=== PATIENT | male | born 1955 ===

== ENCOUNTER 2020-04-14 12:44 | Inpatient (IN) | payer MEDICAID ==
[~2020-04-14] VITALS: Ht 170.1 cm; Wt 120.2 kg
[2020-04-14] MEDS ORDERED: AMARYL1 M1 PO (12:59)
[2020-04-14] MEDS ORDERED: COZAAR25 M1 PO (13:00)
[2020-04-14] MEDS ORDERED: PLAVIX75 M1 PO (13:00)
[2020-04-14] MEDS ORDERED: PERCOCET 5-3251 EACH PO (13:01)
[2020-04-14] MEDS ORDERED: CALCIUM CITRAT250 M1 PO (13:02)
[2020-04-14] MEDS ORDERED: TYLENOL325 M1 PO (13:06)
[2020-04-14] MEDS ORDERED: VITAMIN D31250 MCG PO (13:06)
[2020-04-14] MEDS ORDERED: LASIX40 MG PO (13:07)
[2020-04-14] MEDS ORDERED: IRON325 M1 PO (13:08)
[2020-04-14] MEDS ORDERED: ZANAFLEX4 M1 PO (13:08)
[2020-04-14] MEDS ORDERED: NEURONTIN300 MG PO (13:09)
[2020-04-14] MEDS ORDERED: TRAZODONE100 MG PO (13:09)
[2020-04-14] MEDS ORDERED: MULTIPLE VITAM1 EAC1 PO (13:10)
[2020-04-14] MEDS ORDERED: ZYLOPRIM300 MG PO (13:10)
[2020-04-14 21:39] VITALS: BP 115/86
--- NOTE | 2020-04-14 22:37 | NUR ---
NOTIFIED RESIDENT OF ADMISSION
--- NOTE | 2020-04-14 22:40 | NUR ---
RESIDENTS ON FLOOR TO SEE CLIENT
--- NOTE | 2020-04-14 23:13 | NUR ---
BARBI GARZA III a 64 year old M admitted via stretcher from the ADMITTING as a emergency 72 hr. hold admission. Arrived on unit at 2115PM. ALLERGIES: SEEDED TOMATOES. Vital signs are: [id number] 115/86. CLIENT IS PINK SLIPPED AND DIDN'T SIGN ADMISSION PAPER. The client signed the following forms with stated understanding: Authorization For The Release of Medical Information, Clothing List, , Consent and Release Forms/Receipt of Rights, Acknowledgement of Advance Directive Information, Behavioral Health Consent Form, and Informed Consent of Medications. Admitted under the services of BARBI Cool MD. A search was conducted and hazardous articles were removed. Client was oriented to the unit. CLIENT PLEASENT AND INTERACTIVE. ADMITS TO DRINKING 7-8 BEERS DAILY BUT ONLY DOES COCAINE A COUPLE TIMES A MONTH IF DEPRESSED. STATES LAST YEAR HAS BEEN BAD, LOST SISTER TO CANCER AND LOST A COUSIN. IS CURRENTLY HOMELESS. WAS STAYING AT THE [facility] BUT THEY CAUGHT HIM DRINKING AND KICKED HIM OUT FOR 60 DAYS. STATES HE WAS TOLD HE WAS BEING SENT TO REHAB. HE FEELS HE NEEDS AT LEAST 30 DAYS IN REHAB TO STRAIGHTEN HIM OUT. RAIEL GARAY
--- NOTE | 2020-04-15 00:41 | NUR ---
DISCUSSED STRAIGHT ATIVAN ORDER GIVEN. DR BILL AGREES TO HOLD OFF ON ATIVAN AT THIS TIME AND MONITOR FOR DT'S. ORDER TO DC STRAIGHT ATIVAN RECIVED. HEARD MY ANNABELLE BETTS.
--- NOTE | 2020-04-15 06:40 | NUR ---
SLEPT PAST 2345PM.
[2020-04-15 07:29] LABS: BASO % 0.4 % (0.0-1.0); EOS # 0.1 10*3/uL (0.0-0.4); EOS % 2.2 % (1.0-4.0); HEMATOCRIT 39.9 % (42.0-52.0); LYMPH # 1.7 10*3/uL (1.3-4.4); LYMPH % 37.7 % (27.0-41.0); MEAN CELL VOLUME 84.7 fl (80.0-94.0); MEAN CORPUSCULAR HGB 26.8 pg (27.0-31.0); MEAN CORPUSCULAR HGB CONC 31.6 g/dl (33.0-37.0); MONO # 0.4 10*3/uL (0.1-1.0); MONO % 9.8 % (3.0-9.0); NEUT # 2.2 10*3/uL (2.3-7.9); NEUT % 49.7 % (47.0-73.0); PLATELET COUNT AUTOMATED 153 10*3/uL (130-400); RED BLOOD COUNT 4.71 10*6/uL (4.50-5.90); RED CELL DISTRI WIDTH 14.4 % (0-14.5); WHITE BLOOD COUNT 4.5 10*3/uL (4.8-10.8)
[2020-04-15 07:46] LABS: ALKALINE PHOSPHATASE 149 U/L (45-117); BUN 11 mg/dl (7-24); CHLORIDE 107 mmol/L (98-107); CHOLESTEROL 200 mg/dL (<200); CREATININE 1.21 mg/dL (0.70-1.30); HDL CHOLESTEROL 52 mg/dl (40-60); LDL CHOLESTEROL 110 mg/dL (9-159); SGOT/AST 7 IU/L (3-35); SGPT/ALT 20 U/L (12-78); SODIUM 139 mmol/L (136-145); TOTAL PROTEIN 6.8 gm/dL (6.4-8.2); TRIGLYCERIDES 189 mg/dl (<150); VLDL CHOLESTEROL 38 mg/dL (6-40)
[2020-04-15 07:59] VITALS: BP 152/82
--- NOTE | 2020-04-15 08:30 | NUR ---
Treatment Plan meeting was held this a.m. with Dr. Paz via telephone, DAMIAN Cedeno, RN, AT, CLERICAL WAREHOUSEMAN-S and Lapper in attendance. Plan for discharge is undeclded at this time. Suture Winder Hand to Assess Patient to determine Discharge Needs.
[2020-04-15 08:35] LABS: VITAMIN D, 25-HYDROXY 13.2 ng/mL (30-100)
--- NOTE | 2020-04-15 09:32 | NUR ---
PATIENT SIGNED VOLUNTARY CONSENT TO TREAT.
--- NOTE | 2020-04-15 10:55 | NUR ---
DR MARTINEZ ON UNIT TO ASSESS PATIENT, UPDATE PROVIDED.
--- NOTE | 2020-04-15 12:04 | NUR ---
DR. ORTEGA NOTIFIED OF PODIATRY CONSULT AND ON UNIT TO ASSESS PATIENT.
--- NOTE | 2020-04-15 12:40 | NUR ---
NASAL SWAB COLLECTED , PATIENT TOLERATED WELL ANDN SPECIMEN SENT TO LAB.
--- NOTE | 2020-04-15 13:10 | NUR ---
Met with pt individually this AM. Pt reports to depression and suicidal thoughts since becoming homeless in 02/27. Pt also reports to feeling very scared about his current life situation. Discussed this further and discussed discharge options. Will explore options further for pt.
[2020-04-15 13:45] LABS: BILIRUBIN Negative (Negative); BLOOD Negative (Negative); CLARITY Clear (Clear); COLOR Yellow (Yellow); GLUCOSE Negative (Negative); KETONE Negative (Negative); LEUKO ESTERASE Negative (Negative); NITRITE Negative (Negative); UROBILINOGEN 0.2 E.U./dl (0.0-1.0)
[2020-04-15 14:10] LABS: WBC 0-2 wbc/hpf (0-5)
--- NOTE | 2020-04-15 14:19 | NUR ---
P: SLIGHTLY DEPRESSED; WITHDRAWN TO SELF DURING GROUP SESSIONS. I: ONE ON ONE, ENCOURGE GROUP SESSION AND SOCIAL INTERACTIONS WITH STAFF AND OTHER PATIENTS. R: EFFECTIVE. PATIENT INTERACTIVE WITH STAFF. PATIENT ATTENDS GROUPS BUT DOES NOT PARTICIPATE. PATIENT IS ALERT TO PERSON, PLACE, TIME AND SITUATION; ABLE TO VOICE NEED. MOOD IS SLIGHT DEPRESSED AND WITHDRAWN. DENIES HALLUCINATIONS, DELUSIONS, HI/SI OR PAIN. MEDICATION COMPLIANT WITH EDUCATION PROVIDED. Q 15 MINUTE SAFETY CHECKS MAINTAINED. INDEPENDENT WITH ACTIVITIES OF DAILY LIVING, CONTINENT OF BOWEL AND BLADDER. SET UP FOR MEALS, INTAKES ARE GOOD WITH ADEQUATE FLUIDS. ATTENDS GROUP SESSIONS. P: MONITOR MOOD, THOUGHTS OF SI. PROVIDE ONE ON ONE, ENCOURAGE SOCIAL INERACTIONS, CONTRACT FOR SAFETY NEEDED.
--- NOTE | 2020-04-15 15:44 | NUR ---
PM GROUP PT WAS PRESENT FOR AFTERNOON GROUP THERAPY SEATED AT A TABLE CLOSE TO THE TV. I ATTEMPTED TO INTRODUCE MYSELF BUT THE PT WAS TERSE AND DISMISSIVE. PT WAS ASKED IF HE WAS WATCHING THE MOVIE IT WAS VERY LOUD. PT STATED THAT HE WAS WATCHING IT. THE TV VOLUME WAS TURNED DOWN AND PT WAS OBSERVED TO BE SLEEPING AND NOT WATCHING THE TV. PT REMAINED SLEEPING FOR THE REST OF THE GROUP AND DID NOT NOTICE THAT THE TV HAD BEEN TURNED OFF.
--- NOTE | 2020-04-15 16:10 | NUR ---
Shift chart check completed.
[2020-04-15 19:40] VITALS: BP 124/70
--- NOTE | 2020-04-16 01:50 | NUR ---
P-ISOLATIVE I-REDIRECTION WITH 1:1 THERAPEUTIC INTERVENTIONS AND PRESENT REALITY. EDUCATE AND ENCOURAGE MEDICATION COMPLIANCE R-PATIENT MEDICATON COMPLAINT AT HS. PATIENT PROVIDED NOURISHMENT AND FLUIDS AT HS. PATIENT ISOLATIVE IN DINING AREA WITH PEERS AND NURSING STAFF. PATIENT REFUSED SKIN ASSESSMENT AT HS. PATIENT WITH NO HALLUCINATIONS OR DELUSIONS. PATIENT WITH NO HOMICIDAL OR SUICIDAL IDEATIONS. P-CONTINUE TO ENCOURAGE MEDICATION COMPLIANCE, CONTINUE TO PRESENT REALITY, ENCOURAGE GROUP THERAPY WHILE AWAKE
--- NOTE | 2020-04-16 06:48 | NUR ---
PATIENT SLEPT 8 HOURS OF UNINTERRUPTED SLEEP THROUGHOUT SHIFT. Q 15 MINUTE CHECKS MAINTAINED. 24 HR chart check completed.
[2020-04-16 07:33] VITALS: BP 130/67
--- NOTE | 2020-04-16 07:50 | NUR ---
PHYSICAL THERAPY Patient seen this am for therapy visit and was sitting up at table in activity room upon therapist arrival. Patient identified by name / and was joined by OT assistant health educator for observation only this session. Patient was very pleasant this morning, transfering sit to stand SBA and ambulating initialing with use of wh walker, Supervision, demonstrating steady denis, no LOB. Patient also ambulated additional 100' x 2, with WBQC, SBA, demonstrating initial increased gait velocity, however able to correct following v/c. Patient also dmeonstrated mild fatigue with several bouts of mild SOB, which improved by slowing down his denis. Patient returned to activity room chair awaiting breakfast reporting no new c/o's and remained under [facility] staff Supervision. Will continue per POC as tolerated, total treatment time 15 minutes. Rick Mcdonnell, OUTREACH LIAISON
--- NOTE | 2020-04-16 08:30 | NUR ---
Treatment Plan meeting was held this a.m. with DAMIAN Cedeno RN, AT and Conference Services Manager in attendance. Plan for discharge next Week. Pt. is currently Homeless. He is unable to return to the [facility] and is requesting a Sober House or Inpatient Residential Treatment for Alcohol. Will reach out to [facility] Director to discuss options.
--- NOTE | 2020-04-16 09:22 | NUR ---
DR JONES ON UNIT TO ASSESS PATIENT, UPDATE PROVIDED.
--- NOTE | 2020-04-16 10:51 | NUR ---
P: PATIENT ANXIOUS, WITHDRAWN, DEPRESSED, SAD. I: 1:1 FOR EMOTIONAL SUPPORT, PROVIDE SPACE NEEDED. ALLOW PATIENT TO VERBALIZE FEELINGS. R: PATIENT IS ALERT AND ORIENTED TO PERSON, PLACE, TIME AND SITUATION. PATIENT IS ANXIOUS AND WORRIED. PATIENT STATES HIS FIRST COUSIN CONTRACTED THE [employer] AND HAD A MAJOR HEART ATTACK AND IS ON LIFE SUPPORT. PATIENT STATES HE'S NOT ABLE TO SLEEP WELL D/T WORRYING ABOUT HIS COUSIN. PATIENT DOES FEEL SOME SADNESS AND DEPRESSION. PATIENT DENIES SI/HI. PATIENT DENIES ANY HALLUCINATIONS OR DELUSIONS. PATIENT IS AMBULATORY WITH WALKER. SET UP FOR MEALS. INTAKES ARE GOOD WITH ADEQUATE FLUIDS. PATIENT IS CONTINENT. MEDICATION COMPLIANT WITH EDUCATION. PATIENT PARTICIPATES IN GROUP ACITIVITES. P: WILL CONTINUE TO MONITOR MOODS/BEHAVIORS. WILL CONTINUE TO ENCOURAGE MEDICATION COMPLIANCE, ENCOURAGE INTERACTION WITH PEERS AND STAFF.
--- NOTE | 2020-04-16 11:42 | NUR ---
AM GROUP PT WAS PRESENT FOR MORNING GROUP THERAPY AND PARTICIPATED BY WATCHING TV AND SOCIALIZING WITH STAFF. PT WAS POLITE AND TALKATIVE. PT EXPRESSED NO SUICIDAL IDEATIONS WHILE IN GROUP.
--- NOTE | 2020-04-16 15:40 | NUR ---
PM GROUP PT ATTENDED AFTERNOON GROUP THERAPY AND PARTICIPATED BY MANIPULATING PVC PIPES AND LISTENING TO MUSIC. PT EXPRESSED NO SUICIDAL IDEATIONS WHILE IN GROUP.
--- NOTE | 2020-04-16 17:31 | NUR ---
SPOKE WITH DINO FROM SOLE ASSESSOR. THIS NURSE GAVE DINO FOOD ORDER AT PATIENT REQUEST. DINO CONFIRMED ORDERED AND REPEATED BACK PATIENT REQUESTED ORDER. WING SCORER MAULIK MILES AWARE OF ORDER FOR EXTRA FOOD AT PATIENT REQUEST
[2020-04-16 19:02] VITALS: BP 145/85
--- NOTE | 2020-04-16 19:10 | NUR ---
1904-PATIENT INQUIRING ON MEAL. THIS NURSE CALLED FOR UPDATE ON FOOD REQUESTED BY PATIENT. INFORMED THAT ROOM SERVICE IS BUSY AND WILL FIND OUT WHERE PATIENT TRAY WAS AT. 1907-PATIENT FOOD ARRIVED ON UNIT. PATIENT UPSET STATING "I CAN'T BELIEVE IT TOOK THIS LONG. I KNOW IT WAS ORDER AWILE AGO
--- NOTE | 2020-04-16 22:04 | NUR ---
Patient alert and oriented x4. Mood calm,cooperative but isolative to self in diningroom with other patients and staff. Patient denies SI/HI or hallucinations. No s/s of any responding to internal stimuli at this time. Patient compliant with HS medications without any difficulty. Provided emotional support. Plan to continue to encourage medication compliance. Also continue to offer emotional support. Redirect when needed/appropriate. Will continue to monitor moods/behaviors. Q 15 minute safety checks continued and maintained. See [facility] flowsheet for further documentation.
--- NOTE | 2020-04-17 05:46 | NUR ---
Patient slept approx. 6 hours throughout shift. Q 15 minute safety checks continued and maintained.
[2020-04-17 07:46] VITALS: BP 130/84
--- NOTE | 2020-04-17 08:50 | NUR ---
Patient resting quietly with no c/o discomfort. Respirations easy and regular. Vital signs stable. No overt distress. JAYRO CLEMENS ATE BREAKFAST. SITTING IN DINING ROOM WITH PEERS. ON UNIT TO SEE PT AT THIS TIME, UPDATE GIVEN.
--- NOTE | 2020-04-17 09:00 | NUR ---
PHYSICAL THERAPY Patient seen this am for therapy visit and was sitting up in activity room chair upon therapist arrival. Patient identified by name / and was very pleasant, voicing no c/o's pain at this time. Patient was Independent this session with all transfers and ambulated with use of WBQC, ad pradeep in hallway, demonstrating slow, steady denis and no LOB. Patient able to walk backwards, 4-5 steps and complete multiple 90/180 turns, dmeonstrating Fair+ balance. Patient stated he feels confident and safe with use of wide based quad cane (WBQC) for a distance of > 250'x 1. Patient returned to chair in activity room and remained under [facility] staff Supervision. Will continue per POC as tolerated, total treatment time 14 minutes. Rick Mcdonnell, SUPPLY CHAIN BUSINESS ANALYST
--- NOTE | 2020-04-17 09:30 | NUR ---
Treatment Plan meeting was held this a.m. with Dr. Paz, RN, AT, RIGHT OF WAY MANAGER-S and Home Supervisor in attendance. Plan for discharge Next Week. Pt. has requested Inpatient Treatment at [facility].
--- NOTE | 2020-04-17 09:33 | NUR ---
ON UNIT TO SEE PT AT THIS TIME.
--- NOTE | 2020-04-17 11:25 | NUR ---
Met with pt this AM to discuss discharge needs. Discussed residential treatment centers - particularly [facility]. Pt stated that he would prefer that a referral be made to [facility]. Pt spoke of a troubling dream that he experienced last night. Discussed this further.
--- NOTE | 2020-04-17 11:56 | NUR ---
AM GROUP PT ATTENDED MORNING GROUP THERAPY AND PARTICIPATED BY WATCHING A MOVIE. PT WAS POLITE AND FOCUSED. PT EXPRESSED NO SUICIDAL IDEATIONS WHILE IN GROUP.
--- NOTE | 2020-04-17 13:45 | NUR ---
Referral faxed to [facility] for Inpatient Services.
--- NOTE | 2020-04-17 14:00 | NUR ---
Spoke with Han at [facility]. She thinks that Pt. is appropriate for Inpatient Services and Will call satish to give a definate on admission. [facility] has requested that PRN Narcotic be discontinued and Pt. Not receive Narcotics while here in the [facility]. Notified Charge Nurse. Will follow with Han covarrubias.
--- NOTE | 2020-04-17 14:18 | NUR ---
SPOKE WITH DR MAYS RE: PT DC PLAN FOR [facility], PER ADMISSION REQUIREMENTS PT IS UNABLE TO TAKE OPIATE NARCOTICS. PERCOCET DISCONTINUED PER DR MAYS'S ORDERS.
--- NOTE | 2020-04-17 15:00 | NUR ---
P- PT REPORTS POOR SLEEP D/T "BAD DREAM". I- ORIENTATION, MOOD AND BEHAVIOR ASSESSED. ASSESSED PT FOR SI/HI, INTENT OR PLAN. ASSESSED PT FOR S/S HALLUCINATIONS, PARANOIA AND/OR DELUSIONS. MEDICATIONS ADMINISTERED PER PHYSICIAN'S ORDERS. ASSISTANCE WITH ADL CARE PROVIDED NEEDED. ENCOURAGED PT TO ATTEND AND PARTICIPATE IN [facility] GROUPS AND ACTIVITIES. R- PT IS ALERT AND ORIENTED X4. MEMORY APPEARS TO BE INTACT. RESPS EASY AND EVEN ON ROOM AIR. MOOD APPEARS STABLE WITH FLAT AFFECT. PT DENIES FEELING SAD, DEPRESSED OR ANXIOUS. PT DENIES SI/HI, INTENT OR PLAN. PT DENIES HALLUCINATIONS, NO RESPONSE TO INTERNAL STIMULI NOTED. NO PARANOIA OR DELUSIONS NOTED. PT'S ONLY COMPLAINT IS POOR SLEEP LAST NIGHT D/T A BAD DREAM. AWARE. PT IS MEDICATION COMPLIANT WITHOUT DIFFICULTY. NO DISTRESS NOTED. PT IS CALM, PLEASANT AND COOPERATIVE. NO AGGRESSIVE OR THREATENING BEHAVIORS NOTED. P- PLAN TO CONTINUE CURRENT TREATMENT, CONTINUE TO MONITOR MOOD AND BEHAVIORS, PROVIDE APPROPRIATE REORIENTATION AND REDIRECTION NEEDED. CONTINUE TO ENCOURAGE MEDICATION COMPLIANCE WELL GROUP ATTENDANCE AND PARTICIPATION.
--- NOTE | 2020-04-17 15:35 | NUR ---
PM GROUP PT ATTENDED AFTERNOON GROUP THERAPY AND PARTICIPATED BY PLAYING SOLITAIRE AND LISTENING TO MUSIC. PT WAS QUIET AND FOCUSED. PT EXPRESSED NO SUICIDAL IDEATIONS WHILE IN GROUP.
[2020-04-17 19:02] VITALS: BP 114/75
--- NOTE | 2020-04-17 21:11 | NUR ---
Patient alert and oriented x4. Mood calm,cooperative but isolative to self in his room. Patient denies SI/HI or hallucinations. No s/s of any responding to internal stimuli at this time. Patient compliant with HS medications without any difficulty. Provided emotional support. Patient refused skin assessment at this time. Plan to continue to encourage medication compliance. Also continue to offer emotional support. Redirect when needed/appropriate. Will continue to monitor moods/behaviors. Q 15 minute safety checks continued and maintained. See [facility] [[email or web address]] flowsheet for further documentation.
--- NOTE | 2020-04-18 00:33 | NUR ---
24 HR chart check completed.
--- NOTE | 2020-04-18 06:08 | NUR ---
PT SLEPT APPROXIMATELY 10 HOURS WITH ONE BRIEF AWAKENING TO USE RESTROOM.
[2020-04-18 07:31] VITALS: BP 133/89
--- NOTE | 2020-04-18 07:34 | NUR ---
PHYSICAL THERAPY Pt has achieved PT goals with quad cane ambulating over 250 ft Mod Ind with good balance. Spoke with Nursing (Carmen) regarding discharging pt from PT but to have Ns/U staff continue to supervise pt using QC in the afternoon/evening for ambulation to allow him to use AD only with supervision from staff and then return to closet/holding area so pt does not lose ambulatory skills with QC (currently using FWW due to AD restritions on U) as this is his main AD. Nsg voiced understanding will continue to amb pt as above. Thank you for this referral will discharge pt at this time. Liana Wilkinson PT
--- NOTE | 2020-04-18 08:30 | NUR ---
Treatment Plan meeting was held this a.m. with DAMIAN Cedeno, RN, AT, TENTMAKER-S and Human Resource Internship in attendance. Plan for discharge next week. Pt. has been referred to [facility].
--- NOTE | 2020-04-18 09:00 | NUR ---
Received Call from Han at [facility]. Pt. is accepted and can discharge to [facility] Tuesday Morning at 10 a.m. Same will pick pt. up at 10:00 to transport.
--- NOTE | 2020-04-18 09:48 | NUR ---
AND TEAM ON UNIT TO SEE PT AT THIS TIME.
--- NOTE | 2020-04-18 11:40 | NUR ---
AM GROUP/YATZEE PT ATTENDED MORNING GROUP THERAPY AND PARTICIPATED BY PLAYING [employer]. PT WAS FOCUSED AND SOCIALABLE. PT EXPRESSED NO SUICIDAL IDEATIONS WHILE IN GROUP.
--- NOTE | 2020-04-18 13:04 | NUR ---
P- PT REPORTS DEPRESSED MOOD WITH ANXIETY AND CONTINUED POOR SLEEP D/T BAD DREAMS. I- ORIENTATION, MOOD AND BEHAVIORS ASSESSED. ASSESSED PT FOR SI/HI, INTENT OR PLAN. ASSESSED PT FOR S/S HALLUCINATIONS, PARANOIA AND/OR DELUSIONS. MEDICATIONS ADMINISTERED PER PHYSICIAN'S ORDERS. ASSISTANCE WITH ADL CARE PROVIDED NEEDED. ENCOURAGED PT TO ATTEND AND PARTICIPATE IN [facility] GROUPS AND ACTIVITIES. R- PT IS ALERT AND ORIENTED X4. MEMORY APPEARS TO BE INTACT. RESPS EASY AND EVEN ON ROOM AIR. PT REPORTS MOOD DEPRESSED WITH PERIODS OF ANXIETY. AFFECT APPROPRIATE. SPEECH IS WNL AND COHERENT, ABLE TO MAKE NEEDS KNOWN WITHOUT DIFFICULTY. PT REPORTS CONTINUED POOR SLEEP LAST NIGHT D/T BAD DREAMS. PT STATES HE HAD A DREAM THAT "I KILLED SOMEONE". THIS IS TROUBLING FOR PT HE DENIES ANY SUICIDAL OR HOMICIDAL THOUGHTS. [facility]- IS AWARE. PT DENIES HALLUCINATIONS, NO RESPONSE TO INTERNAL STIMULI NOTED. NO PARANOIA OR DELUSIONS NOTED. PT IS MEDICATION COMPLIANT WITHOUT DIFFICULTY. CALM AND COOPERATIVE WITH STAFF AND PEERS. NO AGGRESSIVE BEHAVIORS. NO DISTRESS NOTED. P- PLAN TO CONTINUE CURRENT TREATMENT, CONTINUE TO MONITOR MOOD AND BEHAVIORS, PROVIDE APPROPRIATE REORIENTATION AND REDIRECTION NEEDED. CONTINUE TO ENCOURAGE MEDICATION COMPLIANCE WELL GROUP ATTENDANCE AND PARTICIPATION.
--- NOTE | 2020-04-18 14:17 | NUR ---
Met with pt this AM and informed him that he has been accepted to [facility] and that the plan is for discharge on 04/21/20 at 10:00. Pt agreed to this plan. Pt denied depression when asked by this ad copy writer.
--- NOTE | 2020-04-18 15:36 | NUR ---
PM GROUP PT DID NOT ATTEND AFTERNOON GROUP THERAPY. PT WAS IN BED RESTING.
[2020-04-18 19:55] VITALS: BP 111/74
--- NOTE | 2020-04-18 21:50 | NUR ---
24 HR chart check completed.
--- NOTE | 2020-04-18 23:16 | NUR ---
PT IS STABLE. PLEASANT MOOD. ALERT & ORIENTED X 4. DENIES SUICIDAL FEELINGS. STATED , "I FEEL GOOD RIGHT NOW". SPENT LEISURE TIME SITTING IN THE DINING ROOM WATCHING TV & A MOVIE. ATE SNACK. COMPLAINT WITH MEDS.
--- NOTE | 2020-04-19 05:49 | NUR ---
PT HAS SLEPT PAST 2099
--- NOTE | 2020-04-19 05:50 | NUR ---
PT HAS SLEPT PAST 2300
[2020-04-19 08:00] VITALS: BP 137/79
--- NOTE | 2020-04-19 12:15 | NUR ---
ON UNIT TO SEE PT AT THIS TIME.
--- NOTE | 2020-04-19 14:52 | NUR ---
NO ADVERSE MOODS OR BEHAVIORS THIS SHIFT. PT IS ALERT AND ORIENTED X4. MEMORY APPEARS INTACT. RESPS EASY AND EVEN ON ROOM AIR. MOOD IS STABLE, AFFECT IS APPROPRIATE. SPEECH IS WNL AND COHERENT, ABLE TO MAKE NEEDS KNOWN WITHOUT DIFFICULTY. PT DENIES SI/HI, INTENT OR PLAN. PT DENIES HALLUCINATIONS, NO RESPONSE TO INTERNAL STIMULI NOTED. NO PARANOIA OR DELUSIONS NOTED. PT IS CALM, PLEASANT AND COOPERATIVE. INDEPENDENT WITH ADL CARE. NO DISTRESS NOTED. PLAN TO CONTINUE CURRENT TREATMENT.
[2020-04-19 19:50] VITALS: BP 119/74
--- NOTE | 2020-04-19 23:25 | NUR ---
PT IS STABLE. PLEASANT MOOD. ALERT & ORIENTED X 4. DENIES SUICIDAL FEELINGS. SPENT LEISURE TIME SITTING IN THE DINING ROOM WATCHING TV. ATE SNACK. COMPLAINT WITH MEDS.
--- NOTE | 2020-04-20 04:48 | NUR ---
24 HR chart check completed.
--- NOTE | 2020-04-20 05:28 | NUR ---
PT HAS SLEPT QUIETLY PAST 2129
[2020-04-20 07:53] VITALS: BP 106/65
[2020-04-20] MEDS ORDERED: ROZEREM8 MG PO (16:05)
[2020-04-20] MEDS ORDERED: MIRTAZAPINE15 M2 PO (16:05)
[2020-04-20] MEDS ORDERED: VITAMIN D3125 MC1 PO (16:05)
--- NOTE | 2020-04-20 18:31 | NUR ---
NO ADVERSE MOODS OR BEHAVIORS NOTED. SEE [facility] FLOWSHEET FOR SPECIFIC MONITORING. MEDICATION COMPLIANT WITHOUT DIFFICULTY. CONTINUE TO MONITOR BEHAVIORS WITH Q15 MINUTE SAFETY CHECKS.
[2020-04-20 20:00] VITALS: BP 128/72
--- NOTE | 2020-04-20 23:15 | NUR ---
NO ADVERSE BEHAVIORS NOTED. PATIENT ALERT AND ORIENTED X4. PT CALM, PLEASANT, ISOLATIVE AT TIMES. MEDICATION COMPLIANT WITHOUT DIFFICULTY. DENIES SI/HI, HALLUCINATIONS, OR PAIN. USES WALKER, GAIT STEADY, INDEPENDENT IN ADLS. NO DISTRESS NOTED. PLAN IS TO MONITOR MOOD AND BEHAVIORS. MAINTAIN Q 15 MIN CHECKS AND PRN FOR SAFETY.
--- NOTE | 2020-04-21 05:51 | NUR ---
PATIENT OBSERVED ON Q 15 MIN CHECKS TO HAVE SLEPT APPROX 8 HOURS UNINTERRUPTED. NO DISTRESS NOTED.
[2020-04-21 07:42] VITALS: BP 117/72
--- NOTE | 2020-04-21 08:30 | NUR ---
Treatment Plan meeting was held this a.m. with Dr. Paz, DAMIAN Cedeno, RN, AT, SW and Manager Sports in attendance. Plan for discharge today. Pt. accepted at [facility] for [facility] Cocaine [facility]. [facility] to Provide Transportation with chicken picker time 10:00 a.m. Pt. will received Mental Health and Primary Care Follow up at [facility] for Inpatient services for 28 days. Discharge Paperwork faxed to [facility] Attn: Han.
--- NOTE | 2020-04-21 10:00 | NUR ---
PT OFF THE UNIT AT THIS TIME. ACCORDING TO STAFF PT WAS PICKED UP IN AN UNMARKED CAR WITH A MALE [employer] SOLUTION ARCHITECT WHO DID NOT HAVE A UNIFORM OR NAME TAG ON. [employer] SOLUTION ARCHITECT WAS IDENTIFIED BY ASKING WHAT THE NAME OF THE TRANSPORT WAS. PT TOOK ALL BELONGINGS AT THIS TIME. PT CHECKED BELONGINGS PRIOR TO LEAVING THE UNIT. REFUSED LAST SKIN ASSESXSMENT. PT STATED "I DONT HAVE WOUNDS". ATTEMPTED TO CALL [facility] TO GIVE NURSE TO NURSE REPORT AND THERE WAS NO ANSWER.
[2020-04-24 09:07] LABS: NEURONTIN (GABAPENTIN) 2.1 ug/mL (4.0-16.0)
== END 2020-04-21 10:00 | DRG 751 ==
LOC: 3N 12:44
PROVIDERS: Counselor Professional; ADMIT Psychiatry & Neurology Psychiatry; ATTEND Psychiatry & Neurology Psychiatry
DX: F33.2 Major depressive disorder, recurrent severe without psychotic features (principal); R45.851 Suicidal ideations; E78.5 Hyperlipidemia, unspecified; M10.9 Gout, unspecified; E61.1 Iron deficiency; M17.12 Unilateral primary osteoarthritis, left knee; F14.20 Cocaine dependence, uncomplicated; F10.20 Alcohol dependence, uncomplicated; B35.1 Tinea unguium; Z20.828 Contact with and (suspected) exposure to other viral communicable diseases; E11.65 Type 2 diabetes mellitus with hyperglycemia; E66.01 Morbid (severe) obesity due to excess calories; I10 Essential (primary) hypertension; Z80.8 Family history of malignant neoplasm of other organs or systems; Z68.41 Body mass index [BMI] 40.0-44.9, adult; Z79.899 Other long term (current) drug therapy; Z79.02 Long term (current) use of antithrombotics/antiplatelets; Z91.018 Allergy to other foods